=== PATIENT | female | born 1965 | race Caucasian/White ===

== ENCOUNTER → 2017-04-25 | Outpatient (CLI) | payer BC ==
[2017-04-25 09:50] LABS: ALT 15 U/L (9-52); AST 16 U/L (14-36); Alkaline Phosphatase 44 U/L (38-126); Anion Gap 11 mmol/L; Blood Urea Nitrogen 12 mg/dL (7-17); Calcium 9.6 mg/dL (8.4-10.2); Carbon Dioxide 25 mmol/L (22-30); Chloride 104 mmol/L (98-107); Glucose 81 mg/dL (74-99); Non-African American GFR(MDRD) >60 (>60 ml/min/1.73 sqM); Potassium 4.4 mmol/L (3.5-5.1); Sodium 140 mmol/L (137-145); Total Bilirubin 0.8 mg/dL (0.2-1.3); Total Protein 7.7 g/dL (6.3-8.2)
[2017-04-25 11:03] LABS: Basophils % (A) 0 %; CH 34.7; CHCM 34.1; Eosinophils # (A) 0.1 k/uL (0-0.7); Eosinophils % (A) 2 %; HDW 2.73; HGB 14.8 gm/dL (11.4-16.0); Luc # (Auto) 0.12; Luc % (Auto) 3; Lymphocytes # (A) 0.3 k/uL (1.0-4.8); Lymphocytes % (A) 8 %; MCHC 35.2 g/dL (31.0-37.0); MCV 102.3 fL (80.0-100.0); Macrocytosis Slight; Mean Platelet Volume 7.5; Monocytes # (A) 0.3 k/uL (0-1.0); Monocytes % (A) 8 %; Neutrophils % (A) 79 %; RDW 13.5 % (11.5-15.5); WBC 3.9 k/uL (3.8-10.6); WBC (Perox) 3.76
== END | disposition home or self-care (01) ==
LOC: LABWHC1 09:12
PROVIDERS: ATTEND Internal Medicine Gastroenterology
DX: K51.50 Left sided colitis without complications (principal)
CPT/HCPCS: 36415; 80053; 85025

== ENCOUNTER 2017-05-31 10:36 | Day surgery (SDC) | payer BC ==
[2017-05-30 08:29] VITALS: BMI 21.4
[~2017-05-31 10:36] MED LIST: LACTATED RINGERS 1,000 ML IV SCH
[2017-05-31 12:19] VITALS: TEMP 97.5
[2017-05-31] MEDS ORDERED: LIDOCAINE 1% 20 ML VIAL (10MG/ML) FOR IV START INTRADERMA ONE (12:19)
[2017-05-31] MEDS ORDERED: PROPOFOL 10 MG/ML 20 ML VIAL IV ONE (12:49)
--- NOTE | 2017-05-31 13:26 | P.PCN ---
Date of Procedure: 05/31/17 Preoperative Diagnosis: Postoperative Diagnosis: Procedure(s) Performed: BRIEF HISTORY: Patient is a 51-year-old pleasant white female, scheduled for an elective colonoscopy as a part of surveillance of long-standing history of ulcerative colitis. She is presently maintained on Imuran as well as is a call and in clinical remission. PROCEDURE PERFORMED: Colonoscopy with biopsy. PREOPERATIVE DIAGNOSIS: Long-standing history of ulcerative colitis IV sedation per Anesthesia. PROCEDURE: After informed consent was obtained, the patient, was brought into the endoscopy unit. IV sedation was administered by Anesthesia under continuous monitoring. Digital rectal examination was normal. Initially the Olympus CF- 160 flexible video colonoscope was then inserted in the rectum, gradually advanced into the cecum without any difficulty. Careful examination was performed as the scope was gradually being withdrawn. Ileocecal valve and the appendiceal orifice were visualized and appeared normal. Prep was excellent. Mucosa of the cecum, ascending colon, transverse colon, descending colon, sigmoid colon, and rectum appeared normal. Multiple random biopsies were done from cecum to rectum at every 10 cm into the to evaluate for dysplasia. Retroflexion was performed in the rectum and no lesions were seen. The patient tolerated the procedure well. IMPRESSION: Normal-appearing colon from rectum to cecum with no evidence of colitis or colorectal neoplasia . RECOMMENDATIONS: Findings of this examination were discussed with the patient as well as her family. She was advised to follow with the biopsy results. She was recently diagnosed with skin cancer and hence I suggested that she stop the Imuran for now and continue with the Asacol, and she will be seen in office in 6 months.. Implants: Indications for Procedure: Operative Findings: Description of Procedure:
[2017-05-31 13:33] VITALS: BP 141/89; PULSE 77; RESP 16
== END 2017-05-31 13:46 | disposition home or self-care (01) ==
LOC: ORWHC2ENDO 10:36
PROVIDERS: ATTEND Internal Medicine Gastroenterology
DX: K51.50 Left sided colitis without complications (principal); D12.0 Benign neoplasm of cecum; J45.909 Unspecified asthma, uncomplicated; Z79.899 Other long term (current) drug therapy; Z79.51 Long term (current) use of inhaled steroids
CPT/HCPCS: 88305; 45380; J2704

== ENCOUNTER → 2017-10-16 | Outpatient (CLI) | payer BC ==
[2017-10-17 01:21] LABS: DHEA Sulfate 101.9 ug/dL (26.0-430.0)
== END ==
LOC: MMGSC 14:07
PROVIDERS: ATTEND Obstetrics & Gynecology
DX: K51.90 Ulcerative colitis, unspecified, without complications (principal); Z78.0 Asymptomatic menopausal state
CPT/HCPCS: 36415; 82306; 82607; 82627; 82670; 83001; 84144; 84403; 84439; 84443

== ENCOUNTER → 2017-11-21 | Outpatient (CLI) | payer BC ==
[2017-11-22 01:00] LABS: Estradiol 36.1 pg/mL
== END ==
LOC: MMGSC 11:30
PROVIDERS: ATTEND Obstetrics & Gynecology
DX: N95.1 Menopausal and female climacteric states (principal)
CPT/HCPCS: 36415; 82670; 83001; 84403

== ENCOUNTER → 2018-01-13 | Outpatient (CLI) | payer BC ==
--- NOTE | 2018-01-14 11:44 | MM ---
Reason for exam: screening (asymptomatic). Last mammogram was performed 1 year and 7 months ago. History: Patient is postmenopausal. Reductions, January 2004. Benign ultrasound-guided core biopsy of the right breast, August 02, 2000. Benign excisional biopsy of the left breast, February 27, 1999. Benign stereotactic core biopsy of the left breast, November 04, 1997. Core biopsy of the left breast. Excisional biopsy of the left breast. 4 excisional biopsies of the right breast. Took hormonal contraceptives beginning at age 37. Taking estrogen for 3 years. Physical Findings: A clinical breast exam by your physician is recommended on an annual basis and results should be correlated with mammographic findings. MG Screening Mammo w CAD Bilateral CC and MLO view(s) were taken. Prior study comparison: May 30, 2016, left breast MG work up mamm w CAD LT. May 23, 2016, bilateral MG screening mammo w CAD. The breast tissue is heterogeneously dense. This may lower the sensitivity of mammography. Focal asymmetry inner left breast stable since 2016. No significant changes when compared with prior studies. ASSESSMENT: Benign, BI-RAD 2 RECOMMENDATION: Routine screening mammogram of both breasts in 1 year.
== END | disposition home or self-care (01) ==
LOC: RADMAMWWP 07:39
PROVIDERS: ATTEND Obstetrics & Gynecology
DX: Z12.31 Encounter for screening mammogram for malignant neoplasm of breast (principal)
CPT/HCPCS: 77067

== ENCOUNTER → 2018-04-29 | Outpatient (CLI) | payer BC ==
[2018-04-29 17:53] LABS: Blood Urea Nitrogen 13 mg/dL (7-17)
--- NOTE | 2018-04-30 08:59 | CT ---
EXAMINATION TYPE: CT abdomen pelvis w con DATE OF EXAM: 04/29/2018 COMPARISON: NONE HISTORY: Gross hematuria. CT DLP: 998 mGycm CONTRAST: CT scan of the abdomen and pelvis is performed with Oral Contrast and with IV Contrast, patient injec merrick with 100ml mL of Isovue M300. FINDINGS: LUNG BASES-: No visible nodule. No infiltrate. LIVER/GB: No calcified gallstones. No space occupying hepatic lesion. Biliary tree is of normal ca liber. PANCREAS: No inflammation. No distinct mass. SPLEEN: No splenic enlargement. No lesion seen. ADRENALS: No nodule. No thickening. KIDNEYS/BLADDER: No hydronephrosis. Large calculus mid pole of the left kidney measuring 1.5 cm. No evidence for obstructing calculus. No distinct renal mass. Urinary bladder grossly unremarkable. BOWEL: Normal appendix. Normal bowel caliber. No inflammation. GENITAL ORGANS: No gross abnormality. LYMPH NODES: No greater than 1cm abdominal or pelvic lymph nodes are appreciated. AORTA: No significant abnormality. OSSEOUS STRUCTURES: No significant abnormality is seen. OTHER: No significant additional abnormality is seen. IMPRESSION: 1. Large nonobstructing calculus mid pole left kidney.
== END | disposition home or self-care (01) ==
LOC: RADCTMAIN 17:02
PROVIDERS: ATTEND Urology
DX: N20.0 Calculus of kidney (principal)
CPT/HCPCS: 82565; 84520; 74177; 36415; Q9967

== ENCOUNTER → 2018-07-22 | Outpatient (CLI) | payer BC ==
--- NOTE | 2018-07-22 13:36 | XR ---
Abdomen HISTORY: Kidney stone Frontal view of the abdomen submitted and correlated to prior exam CT abdomen pelvis 04/29/2018 Calcifications are noted at the level of the anterior lower pole left kidney, findings thought likely to represent multiple small individual calcifications packed into a calyx, approximately 30 or more with the largest calcification measuring only 4 to 5 mm. There is a metallic post through the umbilic al integument. There are vascular calcifications within the pelvis, likely phleboliths. No evident pn eumoperitoneum or bowel obstruction. IMPRESSION: Left-sided nephrolithiasis.
== END | disposition home or self-care (01) ==
LOC: RADXRMAIN 10:05
PROVIDERS: ATTEND Urology
DX: N20.0 Calculus of kidney (principal)
CPT/HCPCS: 74018

== ENCOUNTER → 2018-08-11 | Outpatient (CLI) | payer BC ==
[2018-08-11 09:43] LABS: Basophils % (A) 0 %; Eosinophils # (A) 0.1 k/uL (0-0.7); Eosinophils % (A) 3 %; HCT 43.3 % (34.0-46.0); HGB 14.7 gm/dL (11.4-16.0); Lymphocytes # (A) 0.7 k/uL (1.0-4.8); Lymphocytes % (A) 17 %; MCH 32.8 pg (25.0-35.0); MCHC 33.9 g/dL (31.0-37.0); MCV 96.7 fL (80.0-100.0); Mean Platelet Volume 7.5; Monocytes # (A) 0.3 k/uL (0-1.0); Monocytes % (A) 6 %; Neutrophils # (A) 2.8 k/uL (1.3-7.7); Neutrophils % (A) 71 %; Platelet Count 229 k/uL (150-450); RBC 4.48 m/uL (3.80-5.40); WBC 3.9 k/uL (3.8-10.6)
[2018-08-11 10:00] LABS: Partial Thromboplastin Time 23.5 sec (22.0-30.0)
[2018-08-11 10:07] LABS: Anion Gap 9 mmol/L; Blood Urea Nitrogen 13 mg/dL (7-17); Carbon Dioxide 26 mmol/L (22-30); Chloride 105 mmol/L (98-107); Potassium 4.2 mmol/L (3.5-5.1); Sodium 140 mmol/L (137-145)
== END | disposition home or self-care (01) ==
LOC: LABPAT 08:55
PROVIDERS: ATTEND Urology
DX: N20.0 Calculus of kidney (principal)
CPT/HCPCS: 36415; 80051; 82565; 84520; 85025; 85610; 85730; 93005

== ENCOUNTER → 2018-08-18 | Day surgery (SDC) | payer BC ==
[2018-08-12 15:26] VITALS: BMI 21.4
--- NOTE | 2018-08-17 21:04 | P.GSHP ---
History of Present Illness H&P Date: 08/12/18 Chief Complaint: Left renal calculi The patient is a 53-year-old white female who presented with gross hematuria. A CT urogram revealed a 15 mm left lower pole renal calculus. Urine cytology was negative. The hematuria has resolved. She denies any prior history of urolithiasis. She currently denies pain. A KUB x-ray shows that she does not have a solitary 15 mm calculus, but rather multiple small calculi within a confined area. This raises the possibility of a calyceal diverticulum, and she was offered the option of an IVP or a retrograde pyelogram with left ureteroscopy. If she is found to have a calyceal diverticulum, and the narrowed infundibulum could be identified, and infundibulotomy could be performed using the holmium laser. However, she is reluctant to undergo this procedure as she is aware of the need for a ureteral stent postoperatively. She has thus elected to undergo ESWL, but understands that if ESWL was unsuccessful she will indeed require cystoscopy, left retrograde pyelogram, and left ureteroscopy. Past Medical History Past Medical History: Asthma, Cancer Additional Past Medical History / Comment(s): EXERCISE INDUCED ASTHMA, ULCERATIVE COLITIS. SKIN CA LLE. CURRENTLY HAS REDDENING AROUND RECENT SURGICAL AREA TO REMOVE SKIN CA FROM LLE AND STICHES AND IS ON ANTIBIOTICS History of Any Multi-Drug Resistant Organisms: None Reported Past Surgical History: Breast Surgery, Tonsillectomy, Uterine Ablation Additional Past Surgical History / Comment(s): BREAST LUMPECTOMYS , BREAST REDUCTION, COLONOSCOPYS. SKIN CANCER REMOVED FROM LLE Past Anesthesia/Blood Transfusion Reactions: No Reported Reaction Smoking Status: Never smoker - Past Family History Mother Family Medical History: No Reported History Medications and Allergies Home Medications Medication Instructions Recorded Confirmed Type Fluticasone Propionate 1 spray EA NOSTRIL DAILY 10/18/14 08/12/18 History Mesalamine [Asacol Hd] 1,200 mg PO BID 05/30/17 08/12/18 History Allergies Allergy/AdvReac Type Severity Reaction Status Date / Time No Known Allergies Allergy Verified 08/12/18 15:17 Surgical - Exam - General well developed, well nourished, no distress - Neck no masses, trachea midline - Respiratory normal respiratory effort, clear to auscultation - Cardiovascular Rhythm: regular Abnormal Heart Sounds: no systolic murmur, no diastolic murmur, no rub, no S3 Gallop, no S4 Gallop, no click, no other - Abdomen Abdomen: soft, non tender, no guarding, no rigid, no rebound - Psychiatric oriented to time, oriented to person, oriented to place, speech is normal, memory intact Results - Imaging Abdominal x-ray: report reviewed, image reviewed CT scan - abdomen: report reviewed, image reviewed Assessment and Plan (1) Calculus of kidney Status: Acute Code(s): N20.0 - CALCULUS OF KIDNEY SNOMED Code(s): 50904455 Plan: Left ESWL. The procedure was reviewed in detail with the patient. She was offered the options of observation, ESWL, or ureteroscopy with laser lithotripsy. Careful review of her KUB x-ray suggests that there are multiple calculi present within a left lower pole calyx, perhaps representing a calyceal diverticulum. If this is the case, ESWL may be successful in fragmenting the calculi but they may not pass. If this proves to be the case, she will subsequently require ureteroscopy, with the intent of performing an infundibulotomy to allow the calculi to be removed from this calyceal diverticulum. Potential risks associated with ESWL include anesthesia, hematuria, renal contusion, perinephric hematoma, treatment failure, and [place]. She clearly understands the possible need for secondary treatment.
[~2018-08-18] MED LIST changes: +DEXAMETHASONE SOD PHOSPHATE 10 MG/ML 1 ML VIAL IV ONE; +HYDROmorphone 0.5 MG/0.5 ML SYRINGE IVP PRN; +KETAMINE 10 MG/ML 20 ML VIAL ONE; +MIDAZOLAM 2 MG/2 ML VIAL ONE; +ONDANSETRON 4 MG/2 ML VIAL IVP ONE; +PROPOFOL 10 MG/ML 20 ML VIAL IV ONE; +fentaNYL (PF) 50 MCG/ML 2 ML AMP ONE
--- NOTE | 2018-08-18 07:26 | XR ---
EXAMINATION TYPE: XR KUB DATE OF EXAM: 08/18/2018 CLINICAL DATA: 53 year-old female kidney stones, prelithotripsy, [facility] COMPARISON: 07/22/2018 FINDINGS: Nonobstructive bowel gas pattern. Moderate stool burden. No dilated bowel loops. Multiple signals in the pelvis. Tightly clustered calcifications left mid abdomen with an aggregate dimension of 1.8 cm. IMPRESSION: A 1.8 cm tightly clustered group of left renal calculi.
[2018-08-18 07:51] VITALS: RESP 16; TEMP 98.4
--- NOTE | 2018-08-18 09:25 | P.OP ---
Date of Procedure: 08/18/18 Preoperative Diagnosis: Left renal calculi Postoperative Diagnosis: Same Procedure(s) Performed: Left extracorporeal shockwave lithotripsy (ESWL) Anesthesia: MAC Surgeon: Nitesh Koenig Estimated Blood Loss (ml): 0 IV fluids (ml): 1,000 Pathology: none sent Condition: stable Disposition: PACU Indications for Procedure: The patient is a 53-year-old white female who presented with gross hematuria. A CT urogram revealed a 15 mm left lower pole renal calculus. Urine cytology was negative. The hematuria has resolved. She denies any prior history of urolithiasis. She currently denies pain. A KUB x-ray shows that she does not have a solitary 15 mm calculus, but rather multiple small calculi within a confined area. This raises the possibility of a calyceal diverticulum, and she was offered the option of an IVP or a retrograde pyelogram with left ureteroscopy. If she is found to have a calyceal diverticulum, and the narrowed infundibulum could be identified, and infundibulotomy could be performed using the holmium laser. However, she is reluctant to undergo this procedure as she is aware of the need for a ureteral stent postoperatively. She has thus elected to undergo ESWL. Operative Findings: Fragmentation of the calculi is evident. Description of Procedure: The patient was taken to the operating room and placed on the Dornier Compact Delta II lithotripter in the supine position. The calculi were seen on biplanar fluoroscopy. Once the patient was properly positioned and sedated, lithotripsy was performed. The energy level was gradually increased per protocol, to an energy level of 5. After 200 shocks were administered, a 2 minute pause was instituted per protocol. A total of 2500 shocks were given at a rate of 80 shocks per minute. Fluoroscopy was utilized at a minimum to ensure proper positioning and determine the treatment status. The calculi changed in appearance, consistent with fragmentation. The patient tolerated the procedure well was taken to the recovery room in stable condition. Instructions were given to strain the urine, and the patient will follow-up within one week.
[2018-08-18 09:31] VITALS: BP 149/99; PULSE 80
== END ==
LOC: ORWHC2ENDO 07:00
PROVIDERS: ATTEND Urology
DX: N20.0 Calculus of kidney (principal); R31.0 Gross hematuria; J45.990 Exercise induced bronchospasm; K51.90 Ulcerative colitis, unspecified, without complications; Z85.828 Personal history of other malignant neoplasm of skin; Z79.51 Long term (current) use of inhaled steroids; Z79.899 Other long term (current) drug therapy
CPT/HCPCS: 74018; 50590; J2250; J1100; J2405; J3010; J2704

== ENCOUNTER → 2018-08-27 | Outpatient (CLI) | payer BC ==
--- NOTE | 2018-08-27 10:08 | XR ---
EXAMINATION TYPE: XR KUB DATE OF EXAM: 08/27/2018 HISTORY: Patient states post lithotrispy 08/18/18. Left calculi. Comparison: 08/18/2018 Single KUB is submitted for interpretation. Findings: Right renal calculi: None Visualized. Right ureteral calculi: None Visualized. Left renal calculi: Cluster of calcifications lower pole left kidney measuring 2.3 cm in greatest di mension versus 1.8 cm previously. Left ureteral calculi: None Visualized. Pelvic calcifications: Pelvic calcifications patient remained stable. Bowel gas pattern is unremarkable. No free air. No mass effects. IMPRESSION: 1. Cluster of calcifications lower pole left kidney measuring 2.3 cm in greatest dimension versus 1.8 cm previously.
== END | disposition home or self-care (01) ==
LOC: RADXRMAIN 09:48
PROVIDERS: ATTEND Urology
DX: N20.0 Calculus of kidney (principal)
CPT/HCPCS: 74018

== ENCOUNTER → 2019-05-11 | Outpatient (CLI) | payer BC ==
--- NOTE | 2019-05-12 13:41 | MM ---
Reason for exam: screening (asymptomatic). Last mammogram was performed 1 year and 4 months ago. History: Patient is postmenopausal. Reductions, January 2004. Benign ultrasound-guided core biopsy of the right breast, August 02, 2000. Benign excisional biopsy of the left breast, February 27, 1999. Benign stereotactic core biopsy of the left breast, November 04, 1997. Core biopsy of the left breast. Excisional biopsy of the left breast. 4 excisional biopsies of the right breast. Took hormonal contraceptives beginning at age 37. Taking estrogen for 3 years. Physical Findings: A clinical breast exam by your physician is recommended on an annual basis and results should be correlated with mammographic findings. MG 3D Screening Mammo W/Cad Bilateral CC and MLO view(s) were taken. Prior study comparison: January 13, 2018, bilateral MG screening mammo w CAD. May 30, 2016, left breast MG work up mamm w CAD LT. The breast tissue is heterogeneously dense. This may lower the sensitivity of mammography. Stable post surgical change bilaterally. No significant changes when compared with prior studies. ASSESSMENT: Benign, BI-RAD 2 RECOMMENDATION: Routine screening mammogram of both breasts in 1 year.
== END | disposition home or self-care (01) ==
LOC: RADMAMWWP 07:59
PROVIDERS: ATTEND Obstetrics & Gynecology
DX: Z12.31 Encounter for screening mammogram for malignant neoplasm of breast (principal)
CPT/HCPCS: 77063; 77067

== ENCOUNTER → 2020-08-03 | Outpatient (CLI) | payer BC ==
--- NOTE | 2020-08-03 17:21 | ECHOF ---
Referral Reason:Cardiac murmur R01.1 MEASUREMENTS -------- HEIGHT: 162.6 cm WEIGHT: 54.4 kg BP: 146/77 RVIDd: 2.5 cm (< 3.3) IVSd: 1.1 cm (0.6 - 1.1) LVIDd: 3.8 cm (3.9 - 5.3) LVPWd: 1.1 cm (0.6 - 1.1) IVSs: 1.5 cm LVIDs: 2.7 cm LVPWs: 1.7 cm LA Diam: 3.0 cm (2.7 - 3.8) LAESV Index (A-L): 19.10 ml/m Ao Diam: 2.9 cm (2.0 - 3.7) AV Cusp: 1.9 cm (1.5 - 2.6) MV EXCURSION: 24.208 mm (> 18.000) MV EF SLOPE: 97 mm/s (70 - 150) EPSS: 0.3 cm MV E Robert: 0.70 m/s MV DecT: 293 ms MV A Robert: 0.76 m/s MV E/A Ratio: 0.92 RAP: 5.00 mmHg RVSP: 29.68 mmHg FINDINGS -------- Sinus rhythm. This was a technically good study. The left ventricular size is normal. There is borderline concentric left ventricular hypertrophy. Overall left ventricular systolic function is normal with, an EF between 55 - 60 %. The diastolic filling pattern is normal for the age of the patient 11.52. The right ventricle is normal in size. Normal LA size by volume 22+/-6 ml/m2. The right atrium is normal in size. Interatrial and interventricular septum intact. The aortic valve is trileaflet and appears structurally normal. There is trace to mild mitral regurgitation. Mild tricuspid regurgitation present. Right ventricular systolic pressure is normal at < 35 mmHg. Trace/mild (physiologic) pulmonic regurgitation. The aortic root size is normal. Normal inferior vena cava with normal inspiratory collapse consistent with estimated right atrial pre ssure of 5 mmHg. There is no pericardial effusion. CONCLUSIONS -------- 1. The left ventricular size is normal. 2. There is borderline concentric left ventricular hypertrophy. 3. Overall left ventricular systolic function is normal with, an EF between 55 - 60 %. 4. The diastolic filling pattern is normal for the age of the patient 11.52 5. There is trace to mild mitral regurgitation. 6. Mild tricuspid regurgitation present. 7. Trace/mild (physiologic) pulmonic regurgitation. 8. There is no pericardial effusion. ENVIRONMENTAL CONSERVATION OFFICER: Marcy Choi RDCS
== END | disposition home or self-care (01) ==
LOC: RADECHMAIN 12:15
PROVIDERS: ATTEND Family Medicine
DX: I08.1 Rheumatic disorders of both mitral and tricuspid valves (principal); I37.1 Nonrheumatic pulmonary valve insufficiency
CPT/HCPCS: 93306

== ENCOUNTER → 2020-08-23 | Outpatient (CLI) | payer BC ==
--- NOTE | 2020-08-24 10:11 | MM ---
Reason for exam: screening (asymptomatic). Last mammogram was performed 1 year and 3 months ago. History: Patient is postmenopausal and history of other cancer. Reductions, January 2004. Benign ultrasound-guided core biopsy of the right breast, August 02, 2000. Benign excisional biopsy of the left breast, February 27, 1999. Benign stereotactic core biopsy of the left breast, November 04, 1997. Core biopsy of the left breast. Excisional biopsy of the left breast. 4 excisional biopsies of the right breast. Took hormonal contraceptives beginning at age 37. Taking estrogen for 3 years. Physical Findings: A clinical breast exam by your physician is recommended on an annual basis and results should be correlated with mammographic findings. MG 3D Screening Mammo W/Cad Bilateral CC and MLO view(s) were taken. Prior study comparison: May 11, 2019, bilateral MG 3d screening mammo w/cad. January 13, 2018, bilateral MG screening mammo w CAD. The breast tissue is heterogeneously dense. This may lower the sensitivity of mammography. Focal asymmetry upper outer right breast is stable. No significant changes when compared with prior studies. ASSESSMENT: Benign, BI-RAD 2 RECOMMENDATION: Routine screening mammogram of both breasts in 1 year.
== END | disposition home or self-care (01) ==
LOC: RADMAMWWP 07:04
PROVIDERS: ATTEND Obstetrics & Gynecology
DX: Z12.31 Encounter for screening mammogram for malignant neoplasm of breast (principal)
CPT/HCPCS: 77063; 77067

== ENCOUNTER → 2020-09-23 | Day surgery (SDC) | payer BC ==
[2020-09-21 11:43] VITALS: BMI 20.5
[~2020-09-23] MED LIST changes: -DEXAMETHASONE SOD PHOSPHATE 10 MG/ML 1 ML VIAL IV ONE; -HYDROmorphone 0.5 MG/0.5 ML SYRINGE IVP PRN; -KETAMINE 10 MG/ML 20 ML VIAL ONE; +LACTATED RINGERS 1,000 ML IV ONE; +LIDOCAINE 1% INJ 10MG/ML (20 ML MDV) ONE; -MIDAZOLAM 2 MG/2 ML VIAL ONE; -ONDANSETRON 4 MG/2 ML VIAL IVP ONE; -fentaNYL (PF) 50 MCG/ML 2 ML AMP ONE
[2020-09-23 07:28] VITALS: TEMP 98.4
[2020-09-23 08:23] VITALS: RESP 16
--- NOTE | 2020-09-23 08:29 | P.PCN ---
Date of Procedure: 09/23/20 Procedure(s) Performed: BRIEF HISTORY: Patient is a 55-year-old pleasant female scheduled for an elective colonoscopy as a part of surveillance of long-standing history of ulcerative colitis. PROCEDURE PERFORMED: Colonoscopy with biopsy. PREOPERATIVE DIAGNOSIS: Long-standing history of ulcerative colitis. IV sedation per Anesthesia. PROCEDURE: After informed consent was obtained, the patient, was brought into the endoscopy unit. IV sedation was administered by Anesthesia under continuous monitoring. Digital rectal examination was normal. Initially the Olympus CF-160 flexible video colonoscope was then inserted in the rectum, gradually advanced into the cecum without any difficulty. Careful examination was performed as the scope was gradually being withdrawn. Ileocecal valve and the appendiceal orifice were visualized and appeared normal. Prep was excellent. Mucosa of the cecum, ascending colon, transverse colon, descending colon, sigmoid colon, and rectum appeared normal and random biopsies were done at every 10 cm intervals from cecum to rectum. In the rectum there was a diminutive polyp that was removed by cold biopsy. Retroflexion was performed in the rectum and no lesions were seen. The patient tolerated the procedure well. IMPRESSION: Normal-appearing colon from rectum to cecum with no evidence of ulcerative colitis or colorectal neoplasia. 2 mm rectal polyp status post removal by cold biopsy. RECOMMENDATIONS: Findings of this examination were discussed with the patient well as her family. She was advised to follow with the biopsy results. She will continue with oral mesalamine. If the biopsy results from the distal esophagus to have a repeat colonoscopy in 2 years
[2020-09-23 08:37] VITALS: BP 155/90; PULSE 70
== END ==
LOC: ORWHC2ENDO 07:01 → MERGE 07:30
PROVIDERS: ATTEND Internal Medicine Gastroenterology
DX: K51.90 Ulcerative colitis, unspecified, without complications (principal); K62.1 Rectal polyp; J45.909 Unspecified asthma, uncomplicated; Z79.82 Long term (current) use of aspirin; Z79.899 Other long term (current) drug therapy; Z79.890 Hormone replacement therapy
CPT/HCPCS: 88305; 45380; J2001; J2704

== ENCOUNTER → 2021-06-27 | Outpatient (CLI) | payer BC ==
[2021-06-27 18:45] LABS: Estradiol 29.7 pg/mL; Follicle Stimulating Hormone 57.9 mIU/mL
== END | disposition home or self-care (01) ==
LOC: LABWHC1 08:10
PROVIDERS: ATTEND Obstetrics & Gynecology
DX: N95.1 Menopausal and female climacteric states (principal); R37 Sexual dysfunction, unspecified
CPT/HCPCS: 36415; 82670; 83001; 84144; 84403

== ENCOUNTER → 2021-08-28 | Outpatient (CLI) | payer BC ==
--- NOTE | 2021-08-30 10:08 | MM ---
Reason for exam: screening (asymptomatic). Last mammogram was performed 1 year ago. History: Patient is postmenopausal and history of other cancer. Reductions, January 2004. Benign ultrasound-guided core biopsy of the right breast, August 02, 2000. Benign excisional biopsy of the left breast, February 27, 1999. Benign stereotactic core biopsy of the left breast, November 04, 1997. Core biopsy of the left breast. Excisional biopsy of the left breast. 4 excisional biopsies of the right breast. Took hormonal contraceptives beginning at age 37. Taking estrogen for 9 years. Physical Findings: A clinical breast exam by your physician is recommended on an annual basis and results should be correlated with mammographic findings. MG 3D Screening Mammo W/Cad Bilateral CC and MLO view(s) were taken. Prior study comparison: August 23, 2020, bilateral MG 3d screening mammo w/cad. May 11, 2019, bilateral MG 3d screening mammo w/cad. January 13, 2018, bilateral MG screening mammo w CAD. May 23, 2016, bilateral MG screening mammo w CAD. The breast tissue is heterogeneously dense. This may lower the sensitivity of mammography. Post reduction changes. Stable lateral right distortion. Stable two areas of asymmetric density medial left CC view. No significant changes when compared with prior studies. ASSESSMENT: Benign, BI-RAD 2 RECOMMENDATION: Routine screening mammogram of both breasts in 1 year. Patient should continue monthly self breast exams. A negative report should not preclude additional follow up of suspicious palpable abnormalities.
== END | disposition home or self-care (01) ==
LOC: RADMAMWWP 16:33
PROVIDERS: ATTEND Obstetrics & Gynecology
DX: Z12.31 Encounter for screening mammogram for malignant neoplasm of breast (principal); Z78.0 Asymptomatic menopausal state
CPT/HCPCS: 77063; 77067

== ENCOUNTER → 2022-10-02 | Outpatient (CLI) | payer BC ==
--- NOTE | 2022-10-02 09:27 | MM ---
Reason for Exam: Screening (asymptomatic). Last mammogram was performed 1 year(s) and 2 month(s) ago. Patient History: Menarche at age 10. First Full-Term at age 25. Postmenopausal. Other cancer. Currently using Estrogen, for 9 years. Hormonal Contraceptives, from age 37 until age 43. 01/2004, Reduction. Core Biopsy on the Left side. Excisional Biopsy on the Right side. Excisional Biopsy on the Right side. Excisional Biopsy on the Right side. Excisional Biopsy on the Right side. Excisional Biopsy on the Left side. 08/02/2000, Benign Ultrasound-Guided Core Biopsy on the right side. 02/27/1999, Benign Excisional Biopsy on the left side. 11/04/1997, Benign Stereotactic Core Biopsy on the left side. Risk Values: Brook 5 year model risk: 2.3%. NCI Lifetime model risk: 12.2%. Prior Study Comparison: 05/11/2019 Bilateral Screening Mammogram, [facility]. 08/23/2020 Bilateral Screening Mammogram, [facility]. 08/28/2021 Bilateral Screening Mammogram, [facility]. Tissue Density: The breast tissue is heterogeneously dense. This may lower the sensitivity of mammography. Findings: Analyzed By CAD. There are occasional scattered tiny benign-appearing round calcification bilaterally. Focal benign-appearing vascular calcification anteriorly in the right breast is redemonstrated. Asymmetric prominent tissue posteriorly in the left breast is redemonstrated. There is no suspicious new group of microcalcifications or new suspicious mass in either breast. Overall Assessment: Benign, BI-RAD 2 Management: Screening Mammogram of both breasts in 1 year. A clinical breast exam by your physician is recommended on an annual basis and results should be correlated with mammographic findings. Electronically signed and approved by: Igor Sauceda M.D.
--- NOTE | 2022-10-02 15:54 | BD ---
EXAMINATION TYPE: Axial Bone Density DATE OF EXAM: 10/02/2022 COMPARISON: FIRST DEXA AT [facility] CLINICAL HISTORY: 57 years year old Female. ICD-10 CODE: N95.1 FEMALE CLIMACTERI Height: 63.5IN Weight: 125LB FRAX RISK QUESTIONS: Glucocorticoids (More than 3mos): YES, PREDNISONE FOR 10MONTHS, NONE CURRENTLY (Ex: prednisone, prednisolone, methylprednisolone, dexamethasone, and hydrocortisone). Secondary Osteoporosis: YES 3. Menopause before 45: YES 4. Malnutrition: ULCERATIVE COLITIS RISK FACTORS HISTORY OF: Active: YES Postmenopausal woman: YES Take estrogen and/or progesterone medications: PELLET How lon YEARS MEDICATIONS: Prednisone or other steroids: ABOUT 15 YEARS AGO How Lon MONTHS Additional Medications: UC MEDS, PROGESTERONE, CALCIUM WITH VITAMIN D Additional History: EXAM MEASUREMENTS: Bone mineral densitometry was performed using the [employer] System. Bone mineral density as measured about the Lumbar spine is: ----- L1-L4(G/cm2): 1.158 T Score Values are as follows: ----- L1: -1.5 ----- L2: -1.0 ----- L3: 0.7 ----- L4: 0.6 ----- L1-L4: -0.2 FIRST DEXA AT [facility] Bone mineral density about the R hip (g/cm2): 0.855 Bone mineral density about the L hip (g/cm2): 0.931 T Score values are as follows: -----R Neck: -0.9 -----L Neck: -0.8 -----R Total: -1.2 -----L Total: -0.6 FIRST DEXA AT [facility] FRAX%s: The graph provided illustrates a 6.2% chance for a major osteoporotic fx and a 0.3% chance fo r the hips probability for fx in 10 years time. IMPRESSION: Osteopenia (T Score between -2.5 and -1). There is slightly increased risk of fracture and the patient may be considered for treatment. Re-Screen 2-5 years. NOTE: T-SCORE=SD OF THE YOUNG ADULT MEAN.
== END | disposition home or self-care (01) ==
LOC: RADMAMWWP 06:58
PROVIDERS: ATTEND Obstetrics & Gynecology
DX: Z12.31 Encounter for screening mammogram for malignant neoplasm of breast (principal); M85.89 Other specified disorders of bone density and structure, multiple sites; Z78.0 Asymptomatic menopausal state
CPT/HCPCS: 77063; 77067; 77080

== ENCOUNTER → 2022-11-14 | Day surgery (SDC) | payer BC ==
[2022-11-12 14:45] VITALS: BMI 21.1
[~2022-11-14] MED LIST changes: -LACTATED RINGERS 1,000 ML IV ONE; +LIDOCAINE 1% (10MG/ML) FOR IV START INTRADERMA PRN; -LIDOCAINE 1% INJ 10MG/ML (20 ML MDV) ONE
[2022-11-14 10:42] VITALS: BP 163/95; PULSE 75; RESP 16; TEMP 97.5
--- NOTE | 2022-11-14 20:31 | PCN ---
PROCEDURE NOTE REQUESTING PHYSICIAN: None. BRIEF HISTORY: The patient is a 57-year-old pleasant white female scheduled for an active colonoscopy as a part of screening for colon cancer and longstanding history of ulcerative colitis diagnosed 20 years ago. She is presently in clinical remission. PROCEDURE PERFORMED: Colonoscopy with random biopsies. PREOPERATIVE DIAGNOSIS: Longstanding history of ulcerative colitis. ANESTHESIA: IV sedation per Anesthesia. DESCRIPTION OF PROCEDURE: After informed consent was obtained from the patient, she was brought in to the endoscopy unit. IV conscious sedation was administered by Anesthesia and continuous monitoring. Initial digital rectal examination was normal. Olympus CF190 video colonoscope was then inserted in the rectum, gradually advanced into the cecum. Careful examination was performed as the scope was gradually being withdrawn. The ileocecal valve and appendiceal orifice were visualized and appeared normal. The prep was excellent. Mucosa of the cecum, ascending colon, transverse colon, descending colon, sigmoid colon and rectum appeared normal. Random biopsies were done from the rectum to cecum at every 10 cm interval, scattered sigmoid diverticulosis was seen and the patient tolerated the procedure well. IMPRESSION: Normal-appearing colon from rectum to cecum with no evidence of colitis or colorectal neoplasia. RECOMMENDATIONS: Findings of this examination were discussed with the patient as well as her family. She was advised to follow up with the biopsy results and if the biopsies did not show any evidence of dysplasia, she can have a repeat colonoscopy in 2 years. MMODL / IJN: [id number] /
== END ==
LOC: ORWHC2ENDO 09:34
PROVIDERS: ATTEND Internal Medicine Gastroenterology
DX: K51.90 Ulcerative colitis, unspecified, without complications (principal); Z88.2 Allergy status to sulfonamides; Z79.899 Other long term (current) drug therapy
CPT/HCPCS: 88305; 45380; J2704

== ENCOUNTER → 2023-10-29 | Outpatient (CLI) | payer BC ==
--- NOTE | 2023-10-30 08:41 | MM ---
Reason for Exam: Screening (asymptomatic). Last screening mammogram was performed 12 month(s) ago. Patient History: Menarche at age 10. First Full-Term at age 25. Postmenopausal. Other cancer. Currently using Estrogen, for 9 years. Hormonal Contraceptives, from age 37 until age 43. 01/2004, Reduction. Core Biopsy on the Left side. Excisional Biopsy on the Right side. Excisional Biopsy on the Right side. Excisional Biopsy on the Right side. Excisional Biopsy on the Right side. Excisional Biopsy on the Left side. 08/02/2000, Benign Ultrasound-Guided Core Biopsy on the right side. 02/27/1999, Benign Excisional Biopsy on the left side. 11/04/1997, Benign Stereotactic Core Biopsy on the left side. Risk Values: Brook 5 year model risk: 2.4%. NCI Lifetime model risk: 11.9%. Prior Study Comparison: 08/23/2020 Bilateral Screening Mammogram, [facility]. 08/28/2021 Bilateral Screening Mammogram, [facility]. 10/02/2022 Bilateral MG 3D screening mammo w/cad, [facility]. Tissue Density: There are scattered fibroglandular densities. Findings: Analyzed By CAD. There is no suspicious group of microcalcifications or new suspicious mass. Benign-appearing calcifications bilaterally. Overall Assessment: Benign, BI-RAD 2 Management: Screening Mammogram of both breasts in [address] [facility] will attempt to contact patient to return for supplemental views and ultrasound if indicated. Patient should continue monthly self-breast exams. A clinical breast exam by your physician is recommended on an annual basis. This exam should not preclude additional follow-up of suspicious palpable abnormalities. Note on Brook scores and lifetime risk: 1. A Brook score greater than 3% is considered moderate risk. If this is the case, consider specialist referral to assess eligibility for a risk reducing agent. 2. If overall lifetime risk for the development of breast cancer is 20% or higher, the patient may qualify for future screening with alternating mammogram and breast MRI. Electronically signed and approved by: Osmany Chaney DO
== END | disposition home or self-care (01) ==
LOC: RADMAMWWP 07:37
PROVIDERS: ATTEND Obstetrics & Gynecology
DX: Z12.31 Encounter for screening mammogram for malignant neoplasm of breast (principal); Z78.0 Asymptomatic menopausal state
CPT/HCPCS: 77063; 77067

== ENCOUNTER → 2024-05-04 | Outpatient (CLI) | payer BC ==
[2024-05-04 16:13] LABS: ALT 13 U/L (8-44); AST 19 U/L (13-35); Albumin 4.8 g/dL (3.8-4.9); Albumin/Globulin Ratio 1.92 Ratio (1.60-3.17); Alkaline Phosphatase 50 U/L (41-126); Blood Urea Nitrogen 12.4 mg/dL (9.0-27.0); Calcium 9.7 mg/dL (8.7-10.3); Carbon Dioxide 22.8 mmol/L (21.6-31.8); Chloride 103 mmol/L (96-109); Globulin 2.5 g/dL (1.6-3.3); Glucose 101 mg/dL (70-110); Potassium 4.3 mmol/L (3.5-5.5); Sodium 139 mmol/L (135-145); Total Bilirubin 0.5 mg/dL (0.3-1.2); Total Protein 7.3 g/dL (6.2-8.2)
== END | disposition home or self-care (01) ==
LOC: LABWHC1 09:50
PROVIDERS: ATTEND Internal Medicine Critical Care Medicine
DX: R59.0 Localized enlarged lymph nodes (principal)
CPT/HCPCS: 36415; 80053; 82164; 82306; 86480

== ENCOUNTER → 2024-09-08 | Outpatient (CLI) | payer BC ==
--- NOTE | 2024-09-08 11:00 | CT ---
EXAMINATION TYPE: CT chest w con CT DLP: 145.60 mGycm, Automated exposure control for dose reduction was used. DATE OF EXAM: 09/08/2024 8:02 AM COMPARISON: None CLINICAL INDICATION:Female, 59 years old with history of R59.0 localized enlarged lymph node; PHH, Po ssible sarcoidosis TECHNIQUE: Multiple axial images were obtained through the chest following the administration of 100 cc of Isovue 300. . Coronal and sagittal reformats reviewed. FINDINGS: LUNGS/ PLEURA: No pleural effusion or pneumothorax. Linear scarring and/or atelectasis within the rig ht middle lobe. Several scattered pulmonary nodules identified. Examples include left upper lobe 1.1 cm nodule (series 4, image 14), posterior left upper lobe 6 mm pulmonary nodule (series 4, image 17), superior segment left lower lobe 6 mm nodule (series 4, image 23), left lower lobe 7 lumbar pulmonar y nodule (series 4, image 31), pleural-based right upper lobe 1.1 cm pulmonary nodule (series 4, imag e 18), and right lower lobe superior segment 7 mm pulmonary nodule (series 4 image 26). Biapical pleu ral-parenchymal scarring. No honeycombing or pulmonary fibrosis identified. AIRWAY: Patent and unremarkable.. HEART: Size within normal limits. No pericardial effusion. MEDIASTINUM: Bilateral hilar and mediastinal enlarged lymph nodes identified. Examples include a subc arinal lymph node measuring 1.6 cm (series 3, image 27), a right paratracheal lymph node measuring 1. 1 cm short axis (series 3, image 16), right pulmonary hilar lymph node measuring 1.0 cm (series 3, im age 25), and a left hilar left pulmonary 0.9 cm (series 3, image 27). Calcified mediastinal and bilat eral hilar lymph nodes. VASCULATURE: No aortic aneurysm. MUSCULOSKELETAL: No acute osseous abnormalities SOFT TISSUES/LYMPH NODES: Unremarkable. LOWER NECK: No significant findings. UPPER ABDOMEN: No significant findings. IMPRESSION: 1. Several nonspecific pulmonary nodules identified with largest measuring up to 1.1 cm. This could r epresent questioned sarcoidosis versus other etiologies with metastasis from unknown primary cancer a possibility. Correlate with angiotensin converting enzyme levels. Consider further evaluation with P ET/CT as clinically indicated versus surveillance. 2. Mediastinal bilateral hilar enlarged lymph nodes with sequelae of prior granulomatous disease iden tified. Likely related to #1. [facility], , 09/08/2024 10:58 AM
== END | disposition home or self-care (01) ==
LOC: RADCTMAIN 07:24
PROVIDERS: ATTEND Internal Medicine Critical Care Medicine
DX: R59.0 Localized enlarged lymph nodes
CPT/HCPCS: 71260

== ENCOUNTER → 2024-12-16 | Outpatient (CLI) | payer BC ==
--- NOTE | 2024-12-16 09:27 | MM ---
Reason for Exam: Screening (asymptomatic). Last mammogram was performed 1 year(s) and 2 month(s) ago. Patient History: Menarche at age 10. First Full-Term at age 25. Postmenopausal. Other cancer. Currently using Estrogen, for 9 years. Hormonal Contraceptives, from age 37 until age 43. 01/2004, Reduction. Core Biopsy on the Left side. Excisional Biopsy on the Right side. Excisional Biopsy on the Right side. Excisional Biopsy on the Right side. Excisional Biopsy on the Right side. Excisional Biopsy on the Left side. 08/02/2000, Benign Ultrasound-Guided Core Biopsy on the right side. 02/27/1999, Benign Excisional Biopsy on the left side. 11/04/1997, Benign Stereotactic Core Biopsy on the left side. Risk Values: Brook 5 year model risk: 2.5%. NCI Lifetime model risk: 11.6%. Prior Study Comparison: 08/28/2021 Bilateral Screening Mammogram, [facility]. 10/02/2022 Bilateral MG 3D screening mammo w/cad, [facility]. 10/29/2023 Bilateral MG 3D screening mammo w/cad, [facility]. Tissue Density: The breasts are heterogeneously dense, which may obscure small masses. Findings: Analyzed By CAD. Stable distortion in the upper outer aspect of the bilateral breasts. Benign appearing vascular calcification right breast redemonstrated. There is a new oval 11 mm circumscribed lesion in the left breast inferiorly roughly 6 to 7 cm distance from nipple . Overall Assessment: Incomplete: need additional imaging evaluation, BI-RAD 0 Management: Diagnostic Breast Ultrasound of the left breast. Targeted ultrasound left breast advised. Patient should continue monthly self-breast exams. A clinical breast exam by your physician is recommended on an annual basis. This exam should not preclude additional follow-up of suspicious palpable abnormalities. Note on Brook scores and lifetime risk: 1. A Brook score greater than 3% is considered moderate risk. If this is the case, consider specialist referral to assess eligibility for a risk reducing agent. 2. If overall lifetime risk for the development of breast cancer is 20% or higher, the patient may qualify for future screening with alternating mammogram and breast MRI. [facility], , 12/16/2024 9:24 AM. Electronically signed and approved by: Igor Sauceda M.D.
== END | disposition home or self-care (01) ==
LOC: RADMAMWWP 08:08
PROVIDERS: ATTEND Obstetrics & Gynecology
DX: Z12.31 Encounter for screening mammogram for malignant neoplasm of breast (principal); Z78.0 Asymptomatic menopausal state; R92.333 Mammographic heterogeneous density, bilateral breasts
CPT/HCPCS: 77063; 77067

== ENCOUNTER → 2024-12-22 | Outpatient (CLI) | payer BC ==
--- NOTE | 2024-12-22 11:47 | USB ---
Reason for Exam: Additional evaluation requested from abnormal screening. Patient History: Menarche at age 10. First Full-Term at age 25. Postmenopausal. Other cancer. Currently using Estrogen, for 9 years. Hormonal Contraceptives, from age 37 until age 43. 01/2004, Reduction. Core Biopsy on the Left side. Excisional Biopsy on the Right side. Excisional Biopsy on the Right side. Excisional Biopsy on the Right side. Excisional Biopsy on the Right side. Excisional Biopsy on the Left side. 08/02/2000, Benign Ultrasound-Guided Core Biopsy on the right side. 02/27/1999, Benign Excisional Biopsy on the left side. 11/04/1997, Benign Stereotactic Core Biopsy on the left side. Risk Values: Brook 5 year model risk: 2.5%. NCI Lifetime model risk: 11.6%. Technique: Method: Targeted. Prior Study Comparison: 10/02/2022 Bilateral MG 3D screening mammo w/cad, [facility]. 10/29/2023 Bilateral MG 3D screening mammo w/cad, [facility]. 12/16/2024 Bilateral MG 3D screening mammo w/cad, [facility]. Findings: The lower section of the breast of the left breast, the axilla of the left breast and the retroareolar of the left breast were scanned. Target ultrasound 5-7 o'clock left breast including scanning of the subareolar region and axilla. At the 6:00 position, 6 cm from the nipple, there is a lobulated hypoechoic circumscribed mass measuring 1.2 x 0.8 x 0.4 cm. Mammographic correlate. No posterior shadowing or internal vascularity is seen. 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 No other solid or cystic lesion. No axillary adenopathy. Overall Assessment: Suspicious, BI-RAD 4 Management: Ultrasound Core Biopsy of the left breast. For the mammographic correlate, fibroadenoma is in the differential. Results were given to the patient verbally at the time of exam. [facility], , 12/22/2024 11:30 AM. Electronically signed and approved by: Kylah Redmond M.D. Radiologist
== END | disposition home or self-care (01) ==
LOC: RADUSWWP 10:52
PROVIDERS: ATTEND Obstetrics & Gynecology
DX: R92.8 Other abnormal and inconclusive findings on diagnostic imaging of breast (principal); Z78.0 Asymptomatic menopausal state

== ENCOUNTER → 2024-12-31 | Day surgery (SDC) | payer BC ==
--- NOTE | 2025-01-01 10:37 | USB ---
Risk Values: Brook 5 year model risk: 2.5%. NCI Lifetime model risk: 11.6%. Findings: Area of concern was scheduled for biopsy appears to be simple appearing cyst. Biopsy was canceled at this time. Patient agreed to this plan. No evidence for organizing fluid collection or mass. ASSESSMENT: 2 - Benign. Management: Screening Mammogram of both breasts in 1 year. A clinical breast exam by your physician is recommended on an annual basis and results should be correlated with mammographic findings. This exam should not preclude additional follow-up of suspicious palpable abnormalities. Results were given to the patient verbally at the time of exam. [facility], , 01/01/2025 7:18 AM . Electronically signed and approved by: Osmany Chaney DO
== END ==
LOC: RADUSWWP 12:18
PROVIDERS: ATTEND Surgery
DX: R92.8 Other abnormal and inconclusive findings on diagnostic imaging of breast (principal)

== ENCOUNTER → 2025-03-22 | Outpatient (CLI) | payer BC ==
--- NOTE | 2025-03-22 10:26 | CT ---
EXAMINATION TYPE: CT chest w con DATE OF EXAM: 03/22/2025 10:02 AM COMPARISON: 09/08/2024. CLINICAL INDICATION: Female, 59 years old with history of R590 Localized enlarged lymph nodes; PHH, L neyda nodules TECHNIQUE: Multiple axial images were obtained through the chest. Sagittal and coronal reformats were created for review. MIP was performed on a separate workstation. Contrast used:100 mL of Isovue 300 with IV Contrast (None if empty) Oral contrast used: (None if empty) CT DLP: 345 mGycm, Automated exposure control for dose reduction was used. FINDINGS: LUNGS/ PLEURA: No focal consolidation, pneumothorax or pleural effusion. Scattered pulmonary nodules examples described below. Right upper lung lateral 9 mm nodule previously 10 mm. The atelectasis scattered throughout the lung right lower lung nodule measuring 7 mm, previously 7 mm. Left lower lobe superior segment 10 x 6 mm p ulmonary nodule, previously 11 x 8 mm. Other scattered nodules throughout the lungs appears similar. AIRWAY: Patent and unremarkable. HEART: Size within normal limits. No significant coronary artery calcifications. MEDIASTINUM: No gross evidence of adenopathy. VASCULATURE: No aortic aneurysm. Scattered partially calcified lymph nodes seen throughout the media stinum. MUSCULOSKELETAL: No acute osseous abnormalities SOFT TISSUES/LYMPH NODES: Unremarkable. LOWER NECK: No significant findings. UPPER ABDOMEN: Diffuse low-attenuation liver parenchyma. Undulating durham of the gallbladder partiall y visualized. IMPRESSION: 1. Stable partially calcified lymph nodes and scattered pulmonary nodules. No new or enlarging pulmo nary nodules. Correlate for chronic granulomatous disease. 2. Hepatic steatosis. 3. 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 [facility], , 03/22/2025 10:24 AM
== END | disposition home or self-care (01) ==
LOC: RADCTMAIN 09:08
PROVIDERS: ATTEND Internal Medicine Critical Care Medicine
DX: R91.8 Other nonspecific abnormal finding of lung field (principal); R59.0 Localized enlarged lymph nodes; K76.0 Fatty (change of) liver, not elsewhere classified
CPT/HCPCS: 71260; Q9967